=== PATIENT | female | born 1980 | race Caucasian/White ===

== ENCOUNTER 2018-06-28 18:20 | Emergency (ER) | payer BC ==
[2018-06-28 20:05] LABS: ABS Basophils 0.1 10^3/ul (0-0.2); ABS Eosinophils 0.3 10^3/ul (0-0.6); ABS Lymphocytes 2.1 10^3/ul (1.0-4.8); ABS Monocytes 0.4 10^3/ul (0-0.8); ABS Neutrophils 5.5 10^3/ul (1.5-7.7); ABS Nucleated RBC 0 10^3/ul; Eosinophil % 4.2 %; Hematocrit 41 % (35-47); Hemoglobin 13.9 g/dl (12.0-16.0); Lymphocyte % 24.6 %; Mean Corpuscular HGB Conc 34 g/dl (31-36); Mean Corpuscular Hemoglobin 30 pg (27-31); Mean Corpuscular Volume 88 fL (80-97); Mean Platelet Volume 9.4 fL (7.4-10.4); Nucleated Red Blood Cells % 0; Platelet Count 252 10^3/ul (150-450); Red Blood Count 4.71 10^6/ul (4.00-5.40); Red Cell Distribution Width 14 % (10.5-15); White Blood Count 8.4 10^3/ul (3.5-10.8)
[2018-06-28 20:14] LABS: Urine Appearance Cloudy; Urine Bacteria Absent (Absent); Urine Bilirubin Negative (Negative); Urine Blood 1+ (Negative); Urine Color Yellow; Urine Glucose Negative (Negative); Urine Ketones Trace (Negative); Urine Nitrite Negative (Negative); Urine Protein Negative (Negative); Urine Red Blood Cell Trace(0-2/hpf) (Absent); Urine Specific Gravity 1.014 (1.010-1.030); Urine Urobilinogen Negative (Negative); Urine White Blood Cell 1+(6-10/hpf) (Absent)
[2018-06-28 20:22] LABS: ALT 25 U/L (7-52); AST 16 U/L (13-39); Albumin 3.9 g/dL (3.2-5.2); Albumin/Globulin Ratio 1.6 (1-3); Alkaline Phosphatase 55 U/L (34-104); Anion Gap 8 mmol/L (2-11); BUN/Creatinine Ratio 14.9 (8-20); Blood Urea Nitrogen 13 mg/dL (6-24); CO2 Carbon Dioxide 25 mmol/L (22-32); Calcium 9.2 mg/dL (8.6-10.3); Chloride 105 mmol/L (101-111); EGFR Non-African American 72.9 (>60); Globulin 2.4 g/dL (2-4); Glucose 83 mg/dL (70-100); Sodium 138 mmol/L (135-145); Total Protein 6.3 g/dL (6.4-8.9)
[2018-06-28 20:28] LABS: HCG Pregnancy < 0.60 mIU/mL
[2018-06-28] MEDS ORDERED: NS 0.9% 1000 ML* 1,000 ML IV ONE (21:16)
--- NOTE | 2018-06-28 21:37 | ED ---
Abdominal Pain/Female - HPI Summary HPI Summary: A 38 y/o female presents to [facility] with a chief complaint of diffuse abd pain since 06/25/18. She rates her pain as 1/10. The patient admits to nausea but denies vomiting, vaginal bleeding or discharge or a surgical history. Palpation aggravates her pain, but rest alleviates her pain. She has not experienced this pain before, but at first thought the pain was due to menstrual cramps or an ovarian cyst. She claims that her pain has moved down to her pelvic area and up to her torso for the past few days. She takes omeprazole. - History of Current Complaint Chief Complaint: EDAbdPain Stated Complaint: ABD PAIN Time Seen by Provider: 06/28/18 21:08 Hx Obtained From: Patient Hx Last Menstrual Period: now ?: No Onset/Duration: Sudden Onset, Lasting Days, Still Present Timing: Days Severity Initially: Mild Severity Currently: Mild Pain Intensity: 1 Pain Scale Used: 0-10 Numeric Location: Diffuse Radiates: No Aggravating Factor(s): Other: - palpation Associated Signs and Symptoms: Positive: Nausea. Negative: Fever, Vaginal Bleeding, Vaginal Discharge, Vomiting Allergies/Adverse Reactions: Allergies Allergy/AdvReac Type Severity Reaction Status Date / Time No Known Allergies Allergy Verified 06/28/18 21:33 PMH/Surg Hx/FS Hx/Imm Hx Respiratory History: Reports: Hx Asthma, Hx Sleep Apnea - new CPAP user 10/2013 , Other Respiratory Problems/Disorders - allergic rhinitis GI History: Reports: Hx Gastroesophageal Reflux Disease Musculoskeletal History: Reports: Other Musculoskeletal History - obesity Neurological History: Reports: Hx Migraine Psychiatric History: Reports: Hx Depression - meds - Surgical History Surgery Procedure, Year, and Place: [facility] [place]- age 19, T&A Infectious Disease History: No Infectious Disease History: Denies: Traveled Outside the [place] in Last 30 Days - Family History Known Family History: Positive: Hypertension - grandmother Negative: Cardiac Disease, Diabetes - Social History Alcohol Use: Occasionally Substance Use Type: Reports: Marijuana Smoking Status (MU): Current Some Day Smoker Have You Smoked in the Last Year: No Review of Systems Negative: Fever Positive: Abdominal Pain, Nausea. Negative: Vomiting Genitourinary: Other - negative: vaginal bleeding, vaginal discharge All Other Systems Reviewed And Are Negative: Yes Physical Exam - Summary Physical Exam Summary: Appearance: Well appearing, no pain distress Skin: warm, dry, reflects adequate perfusion Head/face: normal Eyes: EOMI, YVETTE ENT: normal Neck: supple, non-tender Respiratory: CTA, breath sounds present Cardiovascular: RRR, pulses symmetrical Abdomen: diffuse abdominal tenderness Musculoskeletal: normal, strength/ROM intact Neuro: normal, sensory motor intact, A&Ox3 Triage Information Reviewed: Yes Vital Signs On Initial Exam: Initial Vitals Temp Pulse Resp BP Pulse Ox 97.9 F 63 18 145/77 95 06/28/18 18:23 06/28/18 18:23 06/28/18 18:23 06/28/18 18:23 06/28/18 18:23 Vital Signs Reviewed: Yes Diagnostics - Vital Signs Vital Signs Temp Pulse Resp BP Pulse Ox 06/28/18 18:23 97.9 F 63 18 145/77 95 - Laboratory Lab Results: Lab Results 06/28/18 06/28/18 06/28/18 Range/Units 19:32 19:32 20:02 WBC 8.4 (3.5-10.8) 10^3/ul RBC 4.71 (4.00-5.40) 10^6/ul Hgb 13.9 (12.0-16.0) g/dl Hct 41 (35-47) % MCV 88 (80-97) fL MCH 30 (27-31) pg MCHC 34 (31-36) g/dl RDW 14 (10.5-15) % Plt Count 252 (150-450) 10^3/ul MPV 9.4 (7.4-10.4) fL Neut % (Auto) 65.8 % Lymph % (Auto) 24.6 % [place] % (Auto) 4.7 % Eos % (Auto) 4.2 % Baso % (Auto) 0.7 % Absolute Neuts (auto) 5.5 (1.5-7.7) 10^3/ul Absolute Lymphs (auto) 2.1 (1.0-4.8) 10^3/ul Absolute Monos (auto) 0.4 (0-0.8) 10^3/ul Absolute Eos (auto) 0.3 (0-0.6) 10^3/ul Absolute Basos (auto) 0.1 (0-0.2) 10^3/ul Absolute Nucleated RBC 0 10^3/ul Nucleated RBC % 0 Sodium 138 (135-145) mmol/L Potassium 4.0 (3.5-5.0) mmol/L Chloride 105 (101-111) mmol/L Carbon Dioxide 25 (22-32) mmol/L Anion Gap 8 (2-11) mmol/L BUN 13 (6-24) mg/dL Creatinine 0.87 (0.51-0.95) mg/dL Est GFR ( Amer) 88.2 (>60) Est GFR (Non-Af Amer) 72.9 (>60) BUN/Creatinine Ratio 14.9 (8-20) Glucose 83 (70-100) mg/dL Calcium 9.2 (8.6-10.3) mg/dL Total Bilirubin 0.50 (0.2-1.0) mg/dL AST 16 (13-39) U/L ALT 25 (7-52) U/L Alkaline Phosphatase 55 (34-104) U/L C-Reactive Protein 47.70 H (<8.01) mg/L Total Protein 6.3 L (6.4-8.9) g/dL Albumin 3.9 (3.2-5.2) g/dL Globulin 2.4 (2-4) g/dL Albumin/Globulin Ratio 1.6 (1-3) Lipase < 10 L (11.0-82.0) U/L Beta HCG, Quant < 0.60 mIU/mL Urine Color Yellow Urine Appearance Cloudy Urine pH 6.0 (5-9) Ur Specific [place] 1.014 (1.010-1.030) Urine Protein Negative (Negative) Urine Ketones Trace A (Negative) Urine Blood 1+ A (Negative) Urine Nitrate Negative (Negative) Urine Bilirubin Negative (Negative) Urine Urobilinogen Negative (Negative) Ur Leukocyte Esterase Trace A (Negative) Urine WBC (Auto) 1+(6-10/hpf) A (Absent) Urine RBC (Auto) Trace(0-2/hpf) (Absent) Ur Squamous Epith Cells Present A (Absent) Urine Bacteria Absent (Absent) Urine Glucose Negative (Negative) Result Diagrams: 06/28/18 19:32 06/28/18 19:32 Lab Statement: Any lab studies that have been ordered have been reviewed, and results considered in the medical decision making process. - CT abdomen/pelvis CT Interpretation Completed By: Radiologist Summary of CT Findings: 1. The descending colon is collapsed. Thickening of the wall. This may. represent an early colitis. No mesenteric inflammation. No significant free. fluid. No free air. 2. 1 cm nodule located in the left lower lung.For low risk patients, consider. CT at 3 months, PET/CT or tissue sampling. For high risk patients, consider CT. at 3 months, PET/CT or tissue sampling. ED physician has reviewed this imaging report. Re-Evaluation - Re-Evaluation First Eval Re-Evaluation Time: 23:30 Change: Improved Comment: Patient is ready for discharge. Was instructed to double her dose of omeprazole Abdominal Pain Fem Course/Dx - Course Course Of Treatment: A 38 y/o female presents to [facility] with a chief complaint of diffuse abd pain since 06/25/18. She rates her pain as 1/10. The patient admits to nausea but denies vomiting, vaginal bleeding or discharge or a surgical history. Palpation aggravates her pain, but rest alleviates her pain. The physical exam revealed diffuse abdominal tenderness. In the ED course the patient was given Sodium Chloride and Iohexol IV. Abdomen/pelvis CT impression: 1. The descending colon is collapsed. Thickening of the wall. This may. represent an early colitis. No mesenteric inflammation. No significant free. fluid. No free air. 2. 1 cm nodule located in the left lower lung.For low risk patients, consider. CT at 3 months, PET/CT or tissue sampling. For high risk patients, consider CT. at 3 months, PET/CT or tissue sampling. The patient will be discharged home. She was instructed to double her dose of omeprazole and follow up with her PCP. The patient is agreeable with this plan. Dx: nonspecific abdominal pain. - Diagnoses Differential Diagnosis: Positive: Diverticulitis, Pancreatitis, Renal Colic, Urinary Tract Infection Provider Diagnoses: Nonspecific abdominal pain Discharge - Sign-Out/Discharge Documenting (check all that apply): Patient Departure - DC - Discharge Plan Condition: Stable Disposition: HOME Patient Education Materials: Abdominal Pain (ED) Referrals: Ashlyn Cadet NP [Primary Care Provider] - 3 Days Additional Instructions: Follow up with your PCP in 3 days. Return to the ED for any new or worsening symptoms. - Billing Disposition and Condition Condition: STABLE Disposition: Home - Attestation Statements Document Initiated by Scribe: Yes Documenting Scribe: Edouard Wood Provider For Whom Scribe is Documenting (Include Credential): Jr London MD Scribe Attestation: I, Edouard Wood, scribed for Jr London MD on 06/28/18 at [id number]. Scribe Documentation Reviewed: Yes Provider Attestation: The documentation as recorded by the Edouard hamm accurately reflects the service I personally performed and the decisions made by me, Jr London MD Status of Scribe Document: Viewed
[2018-06-28] MEDS ORDERED: Iohexol 300* (CONTRAST) 10 ML SDV IV ONE (21:43)
[2018-06-29 00:04] VITALS: BP 120/76
== END 2018-06-29 00:04 | disposition home or self-care (01) ==
LOC: ED 18:20
DX: R10.9 Unspecified abdominal pain (principal); R91.1 Solitary pulmonary nodule; G47.30 Sleep apnea, unspecified; K21.9 Gastro-esophageal reflux disease without esophagitis; F32.9 Major depressive disorder, single episode, unspecified; F17.200 Nicotine dependence, unspecified, uncomplicated
CPT/HCPCS: 36415; 74177; 80053; 81003; 81015; 83690; 84702; 85025; 86140; 87086; 96361; 96374; 99283; Q9967

== ENCOUNTER 2019-02-19 15:46 | Emergency (ER) | payer BC ==
[2019-02-19 16:00] VITALS: BP 140/87
--- NOTE | 2019-02-19 16:30 | UC ---
Skin Complaint HPI - HPI Summary HPI Summary: Patient is a 38-year-old female here with a rash. Patient's had rash on her neck past 2 days. Rash is located on the nape of her neck and goes into her lower back. Rash is itchy and not painful. Patient's had no fever, chills, sore throat, vomiting, diarrhea. Patient summerhouse before. Patient is known to soaps or detergents. Medications reviewed - History of Current Complaint Chief Complaint: UCRash Time Seen by Provider: 02/19/19 16:13 Stated Complaint: RASH Hx Obtained From: Patient Hx Last Menstrual Period: now Onset/Duration: Gradual Onset Pain Intensity: 0 - Allergy/Home Medications Allergies/Adverse Reactions: Allergies Allergy/AdvReac Type Severity Reaction Status Date / Time No Known Allergies Allergy Verified 02/19/19 16:00 Home Medications: Home Medications ALPRAZolam TAB* [Xanax TAB*] 0.5 mg PO TID 02/19/19 [History Confirmed 02/19/19] PMH/Surg Hx/FS Hx/Imm Hx Previously Healthy: Yes - Surgical History Surgical History: Yes Surgery Procedure, Year, and Place[place] [facility] [place] 19[place] - Family History Known Family History: Positive: Hypertension - grandmother Negative: Cardiac Disease, Diabetes - Social History Alcohol Use: Weekly Substance Use Type: Marijuana Substance Use Comment - Amount & Last Used: daily Smoking Status (MU): Current Some Day Smoker Have You Smoked in the Last Year: No Household Exposure Type: Cigarettes Review of Systems All Other Systems Reviewed And Are Negative: Yes Constitutional: Negative: Fever, Chills Skin: Positive: Rash Eyes: Negative: Eye Redness ENT: Negative: Sore Throat, Ear Ache, Nasal Discharge Respiratory: Negative: Shortness Of Breath, Cough Cardiovascular: Negative: Palpitations, Chest Pain Gastrointestinal: Negative: Vomiting, Diarrhea Physical Exam - Summary Physical Exam Summary: Vital Signs Reviewed: Yes A+Ox3, no distress Eyes: Conjunctiva Clear, PERRL. EOM intact and full ENT: Hearing grossly normal TM x 2 clear, moist, uvula midline, no exudate, no erythema Neck: Positive: Supple Respiratory: Positive: No respiratory distress, No accessory muscle use + CTA throughout no w/r Cardiovascular: RRR nl s1, s2 no m/r CBT <2 sec abd soft + BS nt/nd no guarding, no distension Musculoskeletal Exam: DIAZ x 4 without difficulty Strength Intact, ROM Intact Neurological: Positive: Alert, + sensation throughout Psychological: Positive: Normal Response To Family Skin: PinPoint pearly papules over the nape of the neck ago into the hairline and lower back. Area is not warm or tender. Vital Signs: Initial Vital Signs Temp 100.2 F 02/19/19 15:54 Pulse 93 02/19/19 15:54 Resp 16 02/19/19 15:54 BP 140/87 02/19/19 15:54 Pulse Ox 99 02/19/19 15:54 Course/Dx - Course Course Of Treatment: Patient is here with a nonemergent rash. Patient is red flecks in the rash. Patients rash is consistent with molluscum contagiosum versus contact dermatitis versus viral rash. Patient will be treated with topical steroids and Vistaril for itching. - Differential Diagnoses - Skin Complaint Differential Diagnoses: Allergic Reaction, Impetigo, Viral Exanthem, Other - Molluscum, contact dermatitis - Diagnoses Provider Diagnosis: Mollusca contagiosa, Rash Discharge - Sign-Out/Discharge Documenting (check all that apply): Patient Departure All imaging exams completed and their final reports reviewed: No Studies - Discharge Plan Condition: Stable Disposition: HOME Prescriptions: hydrOXYzine pamoate [Vistaril] 25 mg PO Q6HR PRN #20 capsule PRN Reason: Itching Triamcinolone 0.5% CREAM(NF) [Triamcinolone 0.5% CREAM*] 1 applic TOPICAL BID 5 Days #1 tube Patient Education Materials: Acute Rash (ED) Referrals: Charisma Pressley MD [Primary Care Provider] - Additional Instructions: Please use your steroid cream for 5 days Please use your prescribed anti-itching medicine as needed Please call your primary care doctor for follow-up - Billing Disposition and Condition Condition: STABLE Disposition: Home
== END 2019-02-19 16:30 | disposition home or self-care (01) ==
LOC: UCEAST 15:46
DX: B08.1 Molluscum contagiosum (principal); F17.210 Nicotine dependence, cigarettes, uncomplicated
CPT/HCPCS: 99212; G0463